=== PATIENT | female | born 1955 | race Caucasian/White ===

== ENCOUNTER → 2020-08-28 | Outpatient (CLI) | payer MEDICARE ==
[~2020-08-28] MED LIST: BACL10TA PO; CA C1TAB99 PO; CEFAZOLIN SODIUM 1 GM VIAL IVP SCH; CETI10CA5 PO; CINNAMON PO; DOCU-116 PO; FLAX100031 PO; FLUT16H NASAL; FLUT1DIS4 IH; GABA300C PO; GLAT40SY SQ; LACTATED RINGERS 1000ML 1,000 ML IV SCH; LATA7.5D OU; MONT10TA32 PO; PANT40TA55 PO; TRANEXAMIC ACID 3,000 MG in SODIUM CHLORIDE IRRIG SOLUTION 250 ML TP SCH; VITAMIN D PO
[2020-08-28 10:38] LABS: BASOPHILS % (AUTO) 1.3 % (0.0-5.0); EOSINOPHILS % (AUTO) 3.3 % (0.0-8.0); HEMATOCRIT 38.6 % (36-48); LYMPHOCYTES % (AUTO) 31.7 % (21.0-51.0); MEAN CORPUSCULAR HEMOGLOBIN 30.8 pg (27.0-33.0); MEAN CORPUSCULAR HGB CONC 33.4 g/dL (32.0-36.0); MEAN CORPUSCULAR VOLUME 92.1 fL (79-99); MONOCYTES % (AUTO) 10.1 % (3.0-13.0); NEUTROPHILS % (AUTO) 53.6 % (40.0-77.0); PLATELET COUNT (AUTO) 252 K/uL (130-400); RED BLOOD CELL COUNT(AUTO) 4.19 MIL/uL (4.00-5.50); RED CELL DISTRIBUTION WIDTH 13.1 % (11.0-15.5); WHITE BLOOD COUNT (AUTO) 3.1 K/uL (4.8-10.8)
[2020-08-28 10:48] LABS: POTASSIUM 4.4 mmol/L (3.5-5.1)
[2020-08-28 10:49] LABS: INR 0.94 (0.85-1.15); PROTHROMBIN TIME 10.3 SEC (9.6-11.6)
[2020-08-28 10:51] LABS: PARTIAL THROMBOPLASTIN TIME 25.4 SEC (26.3-35.5)
== END | disposition home or self-care (01) ==
LOC: EDSTATUS 08-27 12:00 → DAH 10:00 → EDSTATUS 09-04 12:00
PROVIDERS: ATTEND Orthopaedic Surgery
DX: Z01.812 Encounter for preprocedural laboratory examination (principal); M16.12 Unilateral primary osteoarthritis, left hip; M24.851 Other specific joint derangements of right hip, not elsewhere classified; Z20.822 Contact with and (suspected) exposure to COVID-19; Z96.641 Presence of right artificial hip joint; Z96.698 Presence of other orthopedic joint implants
CPT/HCPCS: 36415; 73502; 80048; 85025; 85610; 85730; 87641; A6260; C9803; U0003; J3490

== ENCOUNTER → 2024-06-19 | Outpatient (CLI) | payer OTHER ==
[~2024-06-19] MED LIST changes: -CEFAZOLIN SODIUM 1 GM VIAL IVP SCH; -LACTATED RINGERS 1000ML 1,000 ML IV SCH; +MONT-39 PO; -MONT10TA32 PO; -TRANEXAMIC ACID 3,000 MG in SODIUM CHLORIDE IRRIG SOLUTION 250 ML TP SCH
--- NOTE | 2024-06-19 11:31 | HMCIMG ---
DEXA BONE DENSITY SURVEY HISTORY: Menopause COMPARISON: None FINDINGS: Bone densitometry study was performed. Bone mineral density of the lumbar spine is 0.994 gram per centimeter square which corresponds to a T score of -0.5 and a Z score of 1.7. Bone mineral density of the left forearm is 0.511 grams per centimeter square which corresponds to a T score of -1.3 and a Z score of 0.8. IMPRESSION: 1. Normal bone mineral density of the lumbar spine and osteopenia of left forearm.
== END | disposition home or self-care (01) ==
LOC: RAH 08:09
PROVIDERS: ATTEND Family Medicine
DX: M85.832 Other specified disorders of bone density and structure, left forearm (principal); Z78.0 Asymptomatic menopausal state
CPT/HCPCS: 77080